=== PATIENT | female | born 1985 | race Caucasian/White ===

== ENCOUNTER 2018-03-26 13:52 | Emergency (ER) | payer OTHER ==
[2018-03-26 14:04] VITALS: BP 127/82
--- NOTE | 2018-03-26 14:18 | ER Document Report ---
ED Medical Screen (RME) - General Chief Complaint: Numbness Stated Complaint: ANAL BLEEDING Time Seen by Provider: 03/26/18 14:08 Notes: Patient is a 32-year-old female that presents to the emergency department for chief complaint of rectal bleeding, and upper extremity paresthesia. Reports history of hemorrhoids, she is noted blood in the toilet, as well as blood on the toilet paper, she is not sure if it is related to hemorrhoids or not, she also states she has been having neck pain, and started having paresthesias of pins and needles sensation of the last few days. ROS: Other than noted above, the 12 point review of systems was reviewed with the patient and were negative, all pertinent findings are included in the HPI. PHYSICAL EXAMINATION: Vital signs reviewed. GENERAL: Well-appearing, well-nourished and in no acute distress. HEAD: Atraumatic, normocephalic. EYES: Pupils equal round extraocular movements intact, conjunctiva are normal. ENT: Nares patent NECK: Normal range of motion no midline tenderness CV: Heart regular rate and rhythm LUNGS: No respiratory distress Musculoskeletal: Normal range of motion NEUROLOGICAL: Normal speech, sensation appears to be intact distally in all extremities, and equal PSYCH: Normal mood, normal affect. MDM: Patient seen and examined for rapid initial assessment. Vital signs reviewed. A comprehensive ED assessment and evaluation of the patient, analysis of test results and completion of the medical decision making process will be conducted by additional ED providers. *Note is created using voice recognition software and may contain spelling, syntax or grammatical errors. TRAVEL OUTSIDE OF THE [place] IN LAST 30 DAYS: No - Related Data Allergies/Adverse Reactions: Sulfa (Sulfonamide Antibiotics) Allergy (Verified 03/26/18 14:15) Past Medical History - Social History Chew tobacco use (# tins/day): No Frequency of alcohol use: Occasional Drug Abuse: None Renal/ Medical History: Denies: Hx Peritoneal Dialysis Physical Exam - Vital signs Vitals: Temp Pulse Resp BP Pulse Ox 98.3 F 84 16 127/82 H 97 03/26/18 14:00 03/26/18 14:00 03/26/18 14:00 03/26/18 14:00 03/26/18 14:00 Course - Vital Signs Vital signs: Temp Pulse Resp BP Pulse Ox 98.3 F 84 16 127/82 H 97 03/26/18 14:00 03/26/18 14:00 03/26/18 14:00 03/26/18 14:00 03/26/18 14:00
[2018-03-26 14:42] LABS: ABSOLUTE BASOPHILS # (AUTO) 0.1 10^3/uL (0.0-0.2); ABSOLUTE EOSINOPHILS # (AUTO) 0.2 10^3/uL (0.0-0.6); ABSOLUTE LYMPHOCYTES (AUTO) 2.8 10^3/uL (0.5-4.7); ABSOLUTE MONOCYTES (AUTO) 0.6 10^3/uL (0.1-1.4); ABSOLUTE NEUT (AUTO) 2.5 10^3/uL (1.7-8.2); EOSINOPHILS % (AUTO) 3.2 % (0-6); HEMATOCRIT 41.1 % (36.0-47.0); HEMOGLOBIN 14.1 g/dL (12.0-15.5); LYMPHOCYTES % (AUTO) 45.9 % (13-45); MEAN CORPUSCULAR HEMOGLOBIN 30.1 pg (27.0-33.4); MEAN CORPUSCULAR HGB CONC 34.4 g/dL (32.0-36.0); MEAN CORPUSCULAR VOLUME 88 fl (80-97); MONOCYTES % (AUTO) 9.2 % (3-13); PLATELET COUNT 251 10^3/uL (150-450); RED CELL DISTRIBUTION WIDTH 13.1 % (11.5-14.0); SEGMENTED NEUTROPHILS % (AUTO) 40.7 % (42-78); TOTAL CELLS COUNTED % (AUTO) 100 %; WHITE BLOOD COUNT 6.1 10^3/uL (4.0-10.5)
[2018-03-26 14:48] LABS: AMORPHOUS SEDIMENT,URINE TRACE /HPF; APPEARANCE,URINE CLOUDY; BILIRUBIN,URINE NEGATIVE (NEGATIVE); COLOR,URINE YELLOW; GLUCOSE, URINE NEGATIVE (NEGATIVE); KETONES,URINE NEGATIVE (NEGATIVE); LEUKOCYTE ESTERASE,URINE NEGATIVE (NEGATIVE); NITRITE,URINE NEGATIVE (NEGATIVE); PROTEIN,URINE NEGATIVE (NEGATIVE); URINE SPECIFIC GRAVITY 1.019
[2018-03-26 14:59] LABS: ALANINE AMINOTRANSFERASE 21 U/L (9-52); ALBUMIN 3.6 g/dL (3.5-5.0); ALKALINE PHOSPHATASE 83 U/L (38-126); ANION GAP 8 (5-19); ASPARTATE AMINO TRANSFERASE 32 U/L (14-36); BILIRUBIN,DIRECT 0.2 mg/dL (0.0-0.4); BILIRUBIN,TOTAL 0.4 mg/dL (0.2-1.3); BLOOD UREA NITROGEN 13 mg/dL (7-20); CALCIUM 8.7 mg/dL (8.4-10.2); CARBON DIOXIDE 26 mmol/L (22-30); CHLORIDE 108 mmol/L (98-107); GLUCOSE 88 mg/dL (75-110); POTASSIUM 4.3 mmol/L (3.6-5.0); SODIUM 141.9 mmol/L (137-145); TOTAL PROTEIN 6.5 g/dL (6.3-8.2)
--- NOTE | 2018-03-26 16:14 | RADIOLOGY REPORT (SQ) ---
EXAM DESCRIPTION: CERV SP 3 VIEW OR LESS COMPLETED DATE/TIME: 03/26/2018 4:04 pm REASON FOR STUDY: neck pain with radiculopathy COMPARISON: None. NUMBER OF VIEWS: Three views. TECHNIQUE: AP, lateral and odontoid radiographic images acquired of the cervical spine. LIMITATIONS: None. FINDINGS: MINERALIZATION: Normal. ALIGNMENT: Anatomic. VERTEBRAE: Vertebral bodies of normal height. DISCS: Trace loss of intervertebral disc height is seen at the C5-6 and C6-7 levels. No associated m arginal osteophytes or uncovertebral hypertrophy. HARDWARE: None in the spine. SOFT TISSUES: No masses or calcifications. Lung apices clear. OTHER: No other significant finding. IMPRESSION: Trace spondylotic changes. Otherwise unremarkable radiographic appearance of the cervic al spine. . TECHNICAL DOCUMENTATION: JOB ID: [id number] [employer]- All Rights Reserved Reading location - IP/workstation name: [email or web address]
[2018-03-26 16:25] LABS: URINE AMPHETAMINES SCREEN NEGATIVE; URINE BARBITURATES SCREEN NEGATIVE; URINE BENZODIAZEPINES SCREEN NEGATIVE; URINE COCAINE SCREEN NEGATIVE; URINE MARIJUANA (THC) SCREEN NEGATIVE; URINE METHADONE SCREEN NEGATIVE; URINE PHENCYCLIDINE SCREEN NEGATIVE
[2018-03-26] MEDS ORDERED: NALBUPHINE HCL INJ 10 MG/1 ML AMPULE IM STA (16:34)
[2018-03-26] MEDS ORDERED: NALBUPHINE HCL INJ 10 MG/1 ML AMPULE IV ONE (16:41)
--- NOTE | 2018-03-26 16:42 | ER Document Report ---
ED General - General Chief Complaint: Numbness Stated Complaint: ANAL BLEEDING Time Seen by Provider: 03/26/18 14:08 Mode of Arrival: Ambulatory Notes: Patient is a well-nourished well-developed 32-year-old female comes emergency room with 2 complaints. First complaint is that she has hemorrhoids and they started approximately 1 week ago she has had some bleeding intermittently with each bowel movement and the day she had a bowel movement and a clot came out from the rectal area. Patient states her rectum is a such pain that she can sit band walk can only lay on her side and is getting old. She states that she is from [facility] in the night before last and she called her primary doctor there and he said she had to go to the ER he could not order her anything over the telephone or out of state. The patient should come complaining of the hemorrhoids and then #2 she is complaining about neck pain with radiation down the arms. Patient states she has a history of chronic back pain that is radiating up to her neck and now has radiated down both arms and causing numbness and tingling in the hands and fingers. Patient states the upper back pain is chronic in nature for some reason her neck is gotten involved and now the numbness is gotten worse. She does inform us that she is planning on moving to our [facility]. TRAVEL OUTSIDE OF THE [place] IN LAST 30 DAYS: No - HPI Onset: Other - 1 week ago Onset/Duration: Sudden, Persistent, Worse Quality of pain: Cramping, Sharp, Throbbing Severity: Moderate Pain Level: 4 Exacerbated by: Sitting, Standing, Movement, Walking Relieved by: Denies Similar symptoms previously: Yes Recently seen / treated by doctor: No - Related Data Allergies/Adverse Reactions: Sulfa (Sulfonamide Antibiotics) Allergy (Verified 03/26/18 14:15) Past Medical History - General Information source: Patient - Social History Smoking Status: Current Every Day Smoker Cigarette use (# per day): Yes Chew tobacco use (# tins/day): No Smoking Education Provided: Yes Frequency of alcohol use: Occasional Drug Abuse: None Family History: Reviewed & Not Pertinent Patient has suicidal ideation: No Patient has homicidal ideation: No - Past Medical History Cardiac Medical History: Reports: Hx Hypertension Pulmonary Medical History: Reports: Hx Asthma Renal/ Medical History: Denies: Hx Peritoneal Dialysis Psychiatric Medical History: Comment Only: Hx Depression - anixety Past Surgical History: Reports: Hx Cholecystectomy Review of Systems - Review of Systems Constitutional: No symptoms reported EENT: No symptoms reported Cardiovascular: No symptoms reported Respiratory: No symptoms reported Gastrointestinal: No symptoms reported, Constipation, Rectal bleeding - With bowel movement, Last bowel movement - Earlier today Genitourinary: No symptoms reported Female Genitourinary: No symptoms reported Musculoskeletal: See HPI, Joint pain, Muscle pain, Neck pain Skin: No symptoms reported Hematologic/Lymphatic: No symptoms reported Neurological/Psychological: No symptoms reported -: Yes All other systems reviewed and negative Physical Exam - Vital signs Vitals: Temp Pulse Resp BP Pulse Ox 98.3 F 84 16 127/82 H 97 03/26/18 14:00 03/26/18 14:00 03/26/18 14:00 03/26/18 14:00 03/26/18 14:00 Interpretation: Normal - Notes Notes: PHYSICAL EXAMINATION: GENERAL: Patient is a well-nourished well-developed 32-year-old female comes to the emergency room and is in no apparent distress on physical examination. She does appear to have discomfort and a difficult time finding a position of comfort. HEAD: Atraumatic, normocephalic. ENT: Nares patent, oropharynx clear without exudates. Moist mucous membranes. NECK: Normal range of motion, supple patient can turn head in any plane but with some minor discomfort. When patient sits down and I do a small light cervical compression patient hunches inward and stop me from performing the test completely. She states it hurts her neck to do that. But she does not think that it sends any pain down the arms. LUNGS: Breath sounds clear to auscultation bilaterally and equal. No wheezes rales or rhonchi. HEART: Regular rate and rhythm without murmurs ABDOMEN: Soft, nontender, nondistended abdomen. No guarding, no rebound. No masses appreciated. Examination of patient's rectal area shows her while laying on her right side with her knees up in the nurse in the room patient has a difficult time relaxing her cheeks for me to take a good look. Finally when she does to relax I can see that there is a small external hemorrhoid at the 6 o 'clock position. It does appear slightly blue but I do not see any embolism and at present and it is just slightly tender. There are no other external hemorrhoids that are noted. Patient did not want me to perform a rectal exam for blood in the stool or the area because of the discomfort. Female : deferred Musculoskeletal: Normal range of motion, no pitting or edema. No cyanosis. NEUROLOGICAL: Normal speech, normal gait. Normal sensory, motor exams PSYCH: Normal mood, normal affect. SKIN: Warm, Dry, normal turgor, no rashes or lesions noted. Course - Re-evaluation Re-evalutation: 03/26/18 16:43 Afternoon exam 03/26/18 16:44 Treat patient with steroid pack for her cervical radiculopathy with some Robaxin , and I will give patient Anusol HC both cream and suppositories. And I will give her 6 hydrocodone tablets. I will write on all the scripts so that they almost be filled at the same time. I will inform patient that this will be on time we can do this at a here for chronic neck pain. And I will also add some gabapentin to her radiculopathy. - Vital Signs Vital signs: Temp Pulse Resp BP Pulse Ox 98.3 F 84 16 127/82 H 97 03/26/18 14:00 03/26/18 14:00 03/26/18 14:00 03/26/18 14:00 03/26/18 14:00 - Laboratory Result Diagrams: 03/26/18 14:26 03/26/18 14:26 Laboratory results interpreted by me: 03/26/18 03/26/18 03/26/18 14:26 14:26 14:26 Seg Neutrophils % 40.7 L Lymphocytes % 45.9 H Chloride 108 H Urine Urobilinogen 2.0 H Urine Ascorbic Acid 40 H Discharge - Discharge Clinical Impression: Cervical radiculopathy Hemorrhoids Qualifiers: Hemorrhoid type: second degree Qualified Code(s): K64.1 - Second degree hemorrhoids Condition: Stable Instructions: Hemorrhoids ([facility]), Radiculopathy ([facility]) Additional Instructions: Is highly important that you start to bulk up her stool. You can do this by using Citrucel or Metamucil [id number] and follow directions. Nothing works instantaneously is going to take 5-10 days for to build up in the system. Do not strain when you have a bowel movement will also help. You can also use sitz baths and this is just sitting in a lukewarm bath water with your cheeks spread apart and letting it get cool. You can buy a little basin to set that inside your toilet and then put a cool water and then sit down that will do it. I am writing you for some suppositories and for some cream that she can apply externally use this 2-3 times a day. Toe pain and swelling is gone. As for your radiculopathy or the numbness and tingling her hands went to put you on some gabapentin for this he can start out with taking 300 mg at night before bed and I am also going to place you on a steroid pack to help with the inflammation in the area. I am giving you for hydrocodone T2 through the next night or 2 but that is going to [place] write for pain medication or/narcotic medication for this discomfort and pain. You need to establish with somebody I will give you the name of the local clinic that we will work deals with you if you have no insurance or if you have insurance then they will also take that as well. It is easy to get into since they are associated with the hospital. Ice tear upper back and neck 3 times a day. Prescriptions: Gabapentin 300 mg PO DAILY #25 solution Hydrocodone/Acetaminophen [[place] 5-325 mg Tablet] 1 tab PO Q6 PRN #6 tablet PRN Reason: Hydrocortisone Acetate [Anusol Hc 25 mg Supp.rect] 1 supp.rect OK BID #14 supp.rect Hydrocortisone Acetate [Anusol-Hc] 21 gm RC TID #1 oint..gm. Forms: Smoking Cessation Education Referrals: [facility] [NO LOCAL MD] - Follow up as needed
== END 2018-03-26 17:15 | disposition home or self-care (01) ==
LOC: ER 13:52
DX: K64.1 Second degree hemorrhoids (principal); M54.12 Radiculopathy, cervical region; K62.5 Hemorrhage of anus and rectum; I10 Essential (primary) hypertension; J45.909 Unspecified asthma, uncomplicated; Z88.2 Allergy status to sulfonamides
CPT/HCPCS: 99283; 96372; 36415; 85025; 81025; 80053; 81001; 80307; 72040; J2300